=== PATIENT | female | born 1990 | race Two or more races ===

== ENCOUNTER 2025-02-02 03:40 | Emergency (ER) | payer BC ==
[~2025-02-02] VITALS: Ht 147.3 cm; Wt 74.8 kg
[2025-02-02] MEDS ORDERED: SPIRONOLACTONE (03:52)
[2025-02-02] MEDS ORDERED: ORPHENADRINE CITRATE 30 MG/ML AMPUL IM STA (04:45)
[2025-02-02] MEDS ORDERED: KETOROLAC TROMETHAMINE 60 MG VIAL IM STA (04:45)
== END 2025-02-02 04:53 | disposition home or self-care (01) ==
LOC: ER 03:43
DX: M54.2 Cervicalgia (principal); G24.3 Spasmodic torticollis

== ENCOUNTER 2025-02-24 01:31 | Emergency (ER) | payer BC ==
[~2025-02-24] VITALS: Ht 147.3 cm; Wt 74.8 kg
[~2025-02-24 01:31] MED LIST: SPIRONOLACTONE
[2025-02-24] MEDS ORDERED: FAMOTIDINE/PF 20 MG/2 ML VIAL IV PUSH STA (03:08)
[2025-02-24] MEDS ORDERED: PROMETHAZINE HCL 50 MG/ML AMPUL IM STA (03:09)
[2025-02-24] MEDS ORDERED: PROMETHAZINE HCL 50 MG/ML AMPUL IM ONE (03:18)
[2025-02-24] MEDS ORDERED: FAMOTIDINE/PF 20 MG/2 ML VIAL ONE (03:18)
[2025-02-24 03:34] LABS: HEMATOCRIT 43.8 % (36.0-45.00); HEMOGLOBIN 14.7 g/dL (12.0-15.00); MEAN CELL VOLUME 88.5 fL (80.00-100.00); MEAN CORPUSCULAR HEMOGLOBIN 29.8 pg (27.00-32.0); MEAN CORPUSCULAR HGB CONC 33.6 g/dl (32.0-36.0); PLATELET COUNT 271 K/uL (150-450); RED BLOOD COUNT 4.95 M/uL (4.00-6.00); RED CELL DISTRIBUTION WIDTH 13.1 % (11.5-14.5)
[2025-02-24 05:20] LABS: INR 0.98; PARTIAL THROMBOPLASTIN TIME 26.9 SECONDS (22.0-34.0); PROTHROMBIN TIME 10.7 SECONDS (9.0-11.5)
[2025-02-24 05:23] LABS: ALBUMIN 3.8 gm/dL (3.4-5.0); BILIRUBIN TOTAL 0.77 mg/dL (0.3-1.2); CALCIUM 9.2 mg/dL (8.5-10.1); CREATININE SERUM 0.76 mg/dL (0.55-1.02); GFR 86.11; GLOBULINA 3.8 G/DL (2.4-3.5); POTASSIUM 4.19 mEq/L (3.5-5.1); TOTAL PROTEIN 7.6 gm/dL (6.4-8.2)
[2025-02-24 07:09] VITALS: BP 103/65; O2SAT 98
== END 2025-02-24 11:57 | disposition home or self-care (01) ==
LOC: ER 01:32
PROVIDERS: General Practice
DX: R42 Dizziness and giddiness (principal); R07.89 Other chest pain; R10.13 Epigastric pain